=== PATIENT | female | born 1935 | race Two or more races ===

== ENCOUNTER 2022-02-22 17:02 | Emergency (ER) | payer OTHER ==
[~2022-02-22] VITALS: Ht 152.4 cm; Wt 50.3 kg
[2022-02-22] MEDS ORDERED: ARICEPT5 MG (18:23)
[2022-02-22] MEDS ORDERED: AMLODIPINE-OLM1 EAC2 (18:23)
[2022-02-22] MEDS ORDERED: TIROSINT75 MCG (18:23)
[2022-02-22] MEDS ORDERED: LISINOPRIL-HCT1 EAC1 (18:24)
[2022-02-22] MEDS ORDERED: TOPROL XL50 M1 (18:25)
[2022-02-22] MEDS ORDERED: MILLIPRED5 MG (18:25)
[2022-02-22] MEDS ORDERED: MEDI-MECLIZINE25 MG (18:25)
[2022-02-22] MEDS ORDERED: ADULT LOW DOSE81 M1 (18:26)
[2022-02-23] MEDS ORDERED: CIPROFLOXACIN500 MG PO ×2 (01:34→01:36)
[2022-02-23] MEDS ORDERED: ACETAMINOPHEN650 M2 PO ×2 (01:35→01:37)
== END 2022-02-23 02:37 | disposition home or self-care (01) ==
LOC: ER 17:02
DX: R55 Syncope and collapse (principal); R07.89 Other chest pain; N39.0 Urinary tract infection, site not specified; B96.89 Other specified bacterial agents as the cause of diseases classified elsewhere; R41.0 Disorientation, unspecified; R53.1 Weakness; I10 Essential (primary) hypertension